=== PATIENT | male | born 1980 | race Native Hawaiian/Other Pacific Islander ===

== ENCOUNTER 2017-09-01 14:41 | Emergency (ER) | payer OTHER ==
[2017-09-01 14:46] VITALS: BP 136/83
[2017-09-01] MEDS ORDERED: NORCO 5/325 PO ONE (15:55)
[2017-09-01] MEDS ORDERED: MOTRIN PO ONE (15:55)
--- NOTE | 2017-09-01 15:55 | Emergency Department Report ---
ED Laceration HPI - HPI Chief Complaint: Wound/Laceration Stated Complaint: FINGER LAC Time Seen by Provider: 09/01/17 15:44 Occurred When: Today Location: Upper Extremity (left middle finger) Severity: severe (pain is 9 out of 10 and achy. Worse with movement and better at rest. She reports that he cut his finger on glass object today prior to coming to the emergency room reports bleeding and that he stop the bleeding with putting pressure and ice. Eyes any radiation of pain to hand wrist or forearm.) Tetanus Status: Not up to Date Laceration Symptoms: Yes Foreign Body Sensation (said he felt like there was a piece of glass in his finger.), Yes Pain (9 out of 10. No medication taken prior to coming to the emergency room), No Numbness, No Weakness Other History: Seen here reports that he cut his left third finger on a broken glass prior to coming to the emergency room. He said he is having pain 9 out of 10 and he felt like there was a piece of glass in his finger. Tetanus vaccine is up-to-date. Denies any other injury. Pain is achy. Reports that he stop bleeding in with holding pressure to side. ED Review of Systems ROS: Stated complaint: FINGER LAC Other details as noted in HPI Comment: All other systems reviewed and negative Constitutional: no symptoms reported Respiratory: no symptoms reported Cardiovascular: denies: chest pain, palpitations, dyspnea on exertion, edema, syncope Gastrointestinal: denies: abdominal pain, nausea, vomiting Skin: other (laceration to left third finger on left hand) Neurological: denies: headache, weakness, numbness, paresthesias, confusion, abnormal gait, vertigo ED Past Medical Hx - Past Medical History Previous Medical History?: Yes Hx Kidney Stones: Yes - Surgical History Past Surgical History?: Yes Additional Surgical History: Right inguinal hernia repair 2011 - Family History Family history: no significant - Social History Smoking Status: Never Smoker Substance Use Type: None - Medications Home Medications: Home Medications Medication Instructions Recorded Confirmed Last Taken Type HYDROcodone/APAP 10-325 [Carlisle 1 tab PO PRN 12/07/13 12/07/13 12/06/13 History 10-325 mg TAB] metroNIDAZOLE [Flagyl] 1 tab PO TID 12/07/13 12/07/13 12/07/13 History Cephalexin [Keflex] 500 mg PO Q8HR 7 Days #21 cap 09/01/17 Unknown Rx Ibuprofen [Motrin] 600 mg PO Q8H PRN 5 Days #15 tablet 09/01/17 Unknown Rx Laceration Physical Exam - Exam General: Vital signs noted. No distress. Alert and acting appropriately. This is a 37-year-old male well-nourished well-developed in no acute distress. Lungs: Clear to Auscultated bilaterally, no rhonchi wheezes or rales CV: S1S2 RRR. No murmur. EXT: no CCE, +2 pulses. No neurovascular compromise Psych: normal mood and behavior Wound Length (cm): 1 Laceration Location: Upper Extremity (upper extremity and left third finger with superficial laceration that is hemostasis. No feeling of foreign body sensation when felt.) Laceration Exam: Yes Normal Distal CMS (+ 2 pulses bilateral radial and ulnar. Patient with good color, movement and sensation in temperature to upper extremities. Able to move his injured finger without any difficulties report pain with movement.), No Foreign Body (no foreign body in the laceration area.) , No Exposed Tendon, Vessel, or Nerve, No Tendon Injury (and able to open and close this hands without any difficulties. No restriction in movement.) ED Course Vital Signs 09/01/17 14:42 Temperature 98.2 F Pulse Rate 84 Respiratory 22 Rate Blood Pressure 136/83 O2 Sat by Pulse 99 Oximetry - Reevaluation(s) Reevaluation #1: 09/01/17 19:29 Patient given Motrin 800 mg by mouth, Carlisle 5/325 2 tablets by mouth and booster 0.5 mL in emergency room. Pain is controlled. The procedure note for laceration repair - Laceration /Wound Repair Left Medial Palm Finger Wound Location: upper extremity Wound Length (cm): 1 Wound's Depth, Shape: superficial, irregular Wound Explored: no foreign body removed Irrigated w/ Saline (ccs): 350 ( does not have any foreign body upon exploration laceration site) Betadine Prep?: Yes (after irrigating the laceration site, patient did not have FB sensation) Volume Anesthetic (ccs): 0 Wound Debrided: moderate Wound Repaired With: Steri-strips (5 Steri-Strips applied to site.) Layer Closure?: No Sterile Dressing Applied?: Yes (5 Steri-Strips followed by bulky Jerad dressing. ) Progress: Tetanus vaccine is updated. ED Medical Decision Making - Radiology Data Radiology results: report reviewed X-ray of left third finger reveal no fracture or dislocation and no radiopaque foreign body. - Medical Decision Making ED course: Jolene Galarza presented emergency room report that he accidentally cut his finger on a broken glass today. Tetanus vaccine is up-to-date patient was given Boostrix 0.5 mL injection emergency room to update his tetanus. Patient was reporting that he has a feeling of foreign body sensation in his left third finger laceration site but after so can, irrigated with normal saline patient does not have that feeling. Wound explored after cleansed and no foreign body seen. Patient has small 1 cm superficial irregular laceration to left third finger at mid phalanx. Sterile bulky dry dressing in place the site after Steri -Strips 5 placed. I instructed patient to remove dressing in 2 days and to take antibiotic to prevent any infection. 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 I Told him that he needs to rest affected area for at least 3 days to allow wound edges to heal. Patient given Carlisle 5/ 325 2 tablets i , Motrin 800 mg by mouth in ED. Follow up with primary care physician in 5 days and if he does not have a primary care physician follow-up at [facility]. Critical care attestation.: If time is entered above; I have spent that time in minutes in the direct care of this critically ill patient, excluding procedure time. ED Disposition Clinical Impression: Finger pain, left Laceration of finger of left hand without foreign body Qualifiers: Encounter type: initial encounter Finger: middle finger Damage to nail status: without damage Qualified Code(s): S61.213A - Laceration without foreign body of left middle finger without damage to nail, initial encounter Injury of left middle finger Qualifiers: Encounter type: initial encounter Qualified Code(s): S69.92XA - Unspecified injury of left wrist, hand and finger(s), initial encounter Disposition: DC- TO HOME OR SELFCARE Is pt being admited?: No Does the pt Need Aspirin: No Condition: Stable Instructions: Finger Laceration (ED), Skin Adhesive Care (ED), Arthralgia (ED) Additional Instructions: Take antibiotic as prescribed Follow-up with your primary care physician in 5 days and if you do not have a primary care physician follow-up at [facility] Keep affected area clean and dry. Followed discharge instruction on acute wound care . Please return to emergency room if you develop increasing redness, streaking, fever, difficulty moving in and the left forearm and increase in pain. Prescriptions: Cephalexin [Keflex] 500 mg PO Q8HR 7 Days #21 cap Ibuprofen [Motrin] 600 mg PO Q8H PRN 5 Days #15 tablet PRN Reason: Pain Referrals: PRIMARY CAREMD [Primary Care Provider] - 09/06/17 [facility] [Outside] - 09/06/17 Forms: Accompanied Note, Work/School Release Form(ED)
--- NOTE | 2017-09-01 17:17 | XRay Report ---
FINAL REPORT EXAM: XR FINGER(S) 2+V LT HISTORY: Trauma/ Poss FB TECHNIQUE: Left 3rd finger three views PRIORS: None. FINDINGS: No fracture is identified. The joint spaces are within normal limits. No focal bony lesion identified. No radiopaque foreign body seen. IMPRESSION: No acute fracture or radiopaque foreign body identified
[2017-09-01] MEDS ORDERED: BOOSTRIX IM ONE (18:46)
== END 2017-09-01 19:50 | disposition home or self-care (01) ==
LOC: ED 14:41
DX: S61.213A Laceration without foreign body of left middle finger without damage to nail, initial encounter (principal); S69.92XA Unspecified injury of left wrist, hand and finger(s), initial encounter; M79.645 Pain in left finger(s); W25.XXXA Contact with sharp glass, initial encounter; Y93.89 Activity, other specified; Y99.8 Other external cause status; Y92.89 Other specified places as the place of occurrence of the external cause
CPT/HCPCS: 90471; 90715